=== PATIENT | male | born 1970 | race Caucasian/White ===

== ENCOUNTER 2017-11-05 19:13 | Emergency (ER) | payer OTHER, MEDICAID ==
[2017-11-05] MEDS: IBUPROFEN 600 MG TAB PO (22:05)
== END 2017-11-05 23:13 | disposition home or self-care (01) ==
LOC: FTE 19:13
DX: S89.92XA Unspecified injury of left lower leg, initial encounter (principal); L03.116 Cellulitis of left lower limb; W10.8XXA Fall (on) (from) other stairs and steps, initial encounter; Y92.9 Unspecified place or not applicable
CPT/HCPCS: 29505; 73562; 99284-25